=== PATIENT | male | born 1955 | race Hispanic/Latino ===

== ENCOUNTER 2018-08-07 14:23 | Emergency (ER) | payer OTHER, SELFPAY ==
[2018-08-07 15:12] LABS: Absolute Lymphocytes (CBC) 1.3 K/uL (0.7-4.9); Basophils % 0.5 % (0-1.3); Eosinophils % 0.4 % (0-4.4); Hematocrit 40.8 % (39.6-49.0); Lymphocytes % 6.9 % (15.3-44.8); MPV 9.7 fL (7.6-11.3); Monocytes % 6.9 % (3.3-12.3); RBC Red Blood Cell Count 5.07 M/uL (4.33-5.43)
[2018-08-07 15:30] LABS: Albumin 3.3 g/dL (3.4-5.0); Bilirubin Direct 0.1 mg/dL (0-0.2); Bilirubin Total 0.5 mg/dL (0.2-1.0); Protein, Total 7.8 g/dL (6.4-8.2)
[2018-08-07 15:34] LABS: Potassium 2.9 mmol/L (3.5-5.1)
[2018-08-07] MEDS ORDERED: FENTANYL CITR 100 MCG/2 ML ONE (15:52)
[2018-08-07] MEDS ORDERED: ONDANSETRON 4 MG/2 ML VIAL ONE (15:52)
--- NOTE | 2018-08-07 16:12 | RAD REPORT ---
EXAM DESCRIPTION: CT - Abdomen Pelvis W Contrast - 08/07/2018 3:49 pm CLINICAL HISTORY: Abdominal pain . COMPARISON: none. TECHNIQUE: Computed axial tomography of the abdomen pelvis was obtained. 100 cc Isovue-300 was admin istered intravenously. Oral contrast was not requested which limits evaluation of bowel. All CT scans are performed using dose optimization technique as appropriate and may include automated exposure control or mA/KV adjustment according to patient size. FINDINGS: Some images are degraded by motion artifact Small low-density areas are present within the periphery of each kidney. The liver, spleen, pancreas, and adrenals appear unremarkable. There is no evidence of diverticulitis. A small amount of ascites The wall of the rectum is thickened. Fluid is present throughout colon. The right colon measures 10 c entimeters. Bilateral inguinal lymph nodes measure up to 2 centimeters. Periaortic lymph node measures 1 centimet er IMPRESSION: Small low-density areas within the periphery of the each kidney. It is uncertain if this is secondary to artifact or pathology such as inflammation/infection. Rectal wall thickening could either be secondary to inflammation or neoplasm. Small perirectal lymph nodes are noted. . Distention of the right colon measuring 10 centimeters Large right hydrocele Lymphadenopathy
[2018-08-07] MEDS ORDERED: NS KCL 20MEQ 1,000 ML IV ONE (16:13)
[2018-08-07 16:34] LABS: Blood Morphology Comment NOT SEEN (NOT SEEN); Platelet Estimate INCR
[2018-08-07] MEDS ORDERED: PIPER/TAZO/NS 3.375gm 3.375 GM/100 ML BAG ONE (16:45)
--- NOTE | 2018-08-07 18:36 | ER ---
Nurse's Notes [facility] Name: Donta Siegel Age: 62 yrs Sex: Male : 1955 Arrival Date: 08/07/2018 Time: 14:25 Bed 26 Private MD: Diagnosis: Large Bowel Obstruction;Proctitis;Other specified diseases of anus and rectum-Rectal Mass Presentation: 08/07 14:31 Presenting complaint: Patient states: Reports bloating and abdominal pain with rectal aj pain from hemorrhoids as well. Care prior to arrival: None. 14:31 Acuity: FANTA 3 aj 15:04 Transition of care: patient was not received from another setting of care. Onset of ca1 symptoms was August 07, 2018. Risk Assessment: Do you want to hurt yourself or someone else? Patient reports no desire to harm self or others. Initial Sepsis Screen: Does the patient meet any 2 criteria? No. Patient's initial sepsis screen is negative. Does the patient have a suspected source of infection? No. Patient's initial sepsis screen is negative. 15:04 Method Of Arrival: Wheelchair ca1 Triage Assessment: 14:31 General: Appears in no apparent distress. uncomfortable, Behavior is calm, cooperative, aj appropriate for age. Pain: Complains of pain in abdomen and anus. Neuro: Level of Consciousness is awake, alert, obeys commands, Oriented to person, place, time, situation, Appropriate for age. Respiratory: Airway is patent Respiratory effort is even, unlabored. GI: Abdomen is round distended. Derm: Skin is intact, is healthy with good turgor, Skin is pink, warm \T\ dry. normal. Historical: - Allergies: 14:31 No Known Allergies; aj - Home Meds: 15:03 None [Active]; ca1 - PMHx: 15:03 None; ca1 - PSHx: 15:03 Hernia repair; ca1 - Immunization history:: Adult Immunizations up to date. - Social history:: Smoking status: Patient uses tobacco products, smokes one-half pack cigarettes per day. - Ebola Screening: : Patient negative for fever greater than or equal to 101.5 degrees Fahrenheit, and additional compatible Ebola Virus Disease symptoms Patient denies exposure to infectious person Patient denies travel to an Ebola-affected area in the 21 days before illness onset. Screenin:03 Abuse screen: Denies threats or abuse. Denies injuries from another. Nutritional ca1 screening: No deficits noted. Tuberculosis screening: No symptoms or risk factors identified. Fall Risk IV access (20 points). Assessment: 14:58 General: Appears in no apparent distress. uncomfortable, Behavior is calm, cooperative, ca1 appropriate for age. Pain: Complains of pain in pelvis and abdomen and anus and groin Pain does not radiate. Pain currently is 9 out of 10 on a pain scale. Pain began 2-3 days ago. Neuro: Level of Consciousness is awake, alert, obeys commands, Oriented to person, place, time, situation. Cardiovascular: Heart tones S1 S2 present Capillary refill < 3 seconds Patient's skin is warm and dry. Respiratory: Airway is patent Respiratory effort is even, unlabored, Respiratory pattern is regular, symmetrical, Breath sounds are clear bilaterally. GI: Abdomen is round distended, Bowel sounds present X 4 quads. Abdomen is tender to palpation X 4 quads. Abd is rigid X 4 quads. GI: Reports constipation, hemorrhoids, of persistent hiccups. : No deficits noted. No signs and/or symptoms were reported regarding the genitourinary system. EENT: No deficits noted. No signs and/or symptoms were reported regarding the EENT system. Derm: Skin is intact, is healthy with good turgor, Skin is pink, warm \T\ dry. Musculoskeletal: Circulation, motion, and sensation intact. Capillary refill < 3 seconds, Range of motion: intact in all extremities. 15:50 Reassessment: Patient appears in no apparent distress at this time. Patient and/or ca1 family updated on plan of care and expected duration. Pain level reassessed. Patient is alert, oriented x 3, equal unlabored respirations, skin warm/dry/pink. 16:45 Reassessment: Patient appears in no apparent distress at this time. Patient and/or ca1 family updated on plan of care and expected duration. Pain level reassessed. Patient is alert, oriented x 3, equal unlabored respirations, skin warm/dry/pink. 17:18 Reassessment: Patient appears in no apparent distress at this time. Patient is alert, ca1 oriented x 3, equal unlabored respirations, skin warm/dry/pink. Pt had BM, loose. Changed briefs, saba and blanket. 18:15 Reassessment: Patient appears in no apparent distress at this time. Patient and/or ca1 family updated on plan of care and expected duration. Pain level reassessed. Patient is alert, oriented x 3, equal unlabored respirations, skin warm/dry/pink. General Surgeon at bedside. 19:04 Reassessment: Patient appears in no apparent distress at this time. Patient and/or ca1 family updated on plan of care and expected duration. Pain level reassessed. Patient is alert, oriented x 3, equal unlabored respirations, skin warm/dry/pink. 19:37 Reassessment: Patient appears in no apparent distress at this time. Patient is alert, ca1 oriented x 3, equal unlabored respirations, skin warm/dry/pink. Called Report to Lety Morales RN. 20:12 Reassessment: Patient appears in no apparent distress at this time. Patient is alert, ca1 oriented x 3, equal unlabored respirations, skin warm/dry/pink. Vital Signs: 14:31 BP 144 / 97; Pulse 112; Resp 16; Temp 99.4; Pulse Ox 97% on R/A; Weight 99.79 kg; aj Height 5 ft. 8 in. (172.72 cm); 15:50 BP 100 / 65; Pulse 105; Resp 18 S; Temp 99(O); Pulse Ox 96% on R/A; ca1 16:47 BP 111 / 76; Pulse 102; Resp 17 S; Pulse Ox 96% on R/A; ca1 17:18 BP 113 / 64; Pulse 94; Resp 17 S; Pulse Ox 100% on R/A; ca1 18:30 BP 107 / 90; Pulse 92; Resp 16; Pulse Ox 95% on R/A; ca1 19:39 BP 132 / 63; Pulse 95; Resp 16; Temp 98.6(O); Pulse Ox 100% on R/A; ca1 14:31 Body Mass Index 33.45 (99.79 kg, 172.72 cm) aj ED Course: 14:25 Patient arrived in ED. as 14:31 Triage completed. aj 14:31 Arm band placed on right wrist. Patient placed in an exam room. aj 14:35 Anusha Barth, RAJ is Primary Nurse. ca1 14:38 Charles Franco PA is PHCP. jr8 14:38 Darrion Drake MD is Attending Physician. jr8 14:53 Inserted saline lock: 20 gauge in right antecubital area, using aseptic technique. mg2 Blood collected. 15:03 Patient has correct armband on for positive identification. Placed in gown. Bed in low ca1 position. Call light in reach. Side rails up X 1. Pulse ox on. NIBP on. Warm blanket given. 15:03 No provider procedures requiring assistance completed. ca1 15:[address] via stretcher. ca1 15:50 CT Abd/Pelvis - IV Contrast Only In Process Unspecified. EDMS 15:57 CT completed. Patient tolerated procedure well. Patient moved back from CT. em2 16:36 Inserted saline lock: 20 gauge in left hand, using aseptic technique. ca1 20:11 Patient transferred, IV remains in place. ca1 20:12 Report given to LUIS FRANCISCO. ca1 Administered Medications: 15:35 Not Given (Physician Discretion): NS 0.9% 1000 ml IV at 1000 ml once jr8 15:42 Drug: Zofran 4 mg Route: IVP; Site: right antecubital; mg2 16:39 Follow up: Response: No adverse reaction; Nausea is decreased ca1 15:51 Drug: fentaNYL (PF) 50 mcg Route: IVP; Site: right antecubital; mg2 16:39 Follow up: Response: No adverse reaction; Pain is decreased ca1 16:05 Drug: NS 0.9% with KCl 20 mEq/L 1000 ml Route: IV; Rate: 500 ml/hr; Site: right ca1 antecubital; 18:30 Follow up: Response: No adverse reaction; IV Status: Completed infusion ca1 16:38 Drug: Zosyn 3.375 grams Route: IVPB; Infused Over: 60 mins; Site: left hand; ca1 17:40 Follow up: Response: No adverse reaction; IV Status: Completed infusion ca1 19:27 Drug: Reglan 10 mg Route: IVP; Site: left hand; ca1 19:40 Follow up: Response: No adverse reaction; Nausea is decreased ca1 Outcome: 18:26 ER care complete, transfer ordered by . jr8 20:11 Transferred by ground EMS to [facility], Transfer form completed. ca1 X-rays sent w/ patient. 20:11 Condition: stable 20:11 Instructed on the need for transfer, Demonstrated understanding of instructions. 20:13 Patient left the ED. ca1 Signatures: Dispatcher [employer] Celia Dennis RN RN Cheyenne Cabrera Josh, PA PA jr8 Montes, Enrique em2 Gardose, Michele, RN RN mg2 Anusha Barth RN RN ca1 Corrections: (The following items were deleted from the chart) 15:06 14:58 GI: Reports constipation, hemorrhoids, ca1 ca1
--- NOTE | 2018-08-07 18:36 | EDPHYS ---
Physician Documentation [facility] Name: Donta Siegel Age: 62 yrs Sex: Male : 1955 Arrival Date: 08/07/2018 Time: 14:25 Bed 26 Private MD: ED Physician Darrion Drake HPI: 08/07 16:37 This 62 yrs old Male presents to ER via Wheelchair with complaints of jr8 Hemorrhoids, Abdominal Pain. 16:37 Onset: The symptoms/episode began/occurred gradually, 3 month(s) ago, and became worse jr8 2 day(s) ago, and became persistent 2 days ago. Associated signs and symptoms: Pertinent positives: diarrhea, vomiting. Modifying factors: The patient symptoms are alleviated by nothing, the patient symptoms are aggravated by nothing. The patient has not experienced similar symptoms in the past. The patient has not recently seen a physician. Patient stated that for the past three months he feels that he has been having bad hemorrhoids. Has seen PCP who gave him cream but without relief. Now for the past two days has had abdominal distension, nausea, vomiting, diarrhea, and bowel incontinence . Historical: - Allergies: 14:31 No Known Allergies; aj - Home Meds: 15:03 None [Active]; ca1 - PMHx: 15:03 None; ca1 - PSHx: 15:03 Hernia repair; ca1 - Immunization history:: Adult Immunizations up to date. - Social history:: Smoking status: Patient uses tobacco products, smokes one-half pack cigarettes per day. - Ebola Screening: : Patient negative for fever greater than or equal to 101.5 degrees Fahrenheit, and additional compatible Ebola Virus Disease symptoms Patient denies exposure to infectious person Patient denies travel to an Ebola-affected area in the 21 days before illness onset. ROS: 16:37 Eyes: Negative for injury, pain, redness, and discharge, ENT: Negative for injury, jr8 pain, and discharge, Neck: Negative for injury, pain, and swelling, Cardiovascular: Negative for chest pain, palpitations, and edema, Respiratory: Negative for shortness of breath, cough, wheezing, and pleuritic chest pain, Back: Negative for injury and pain, MS/Extremity: Negative for injury and deformity, Skin: Negative for injury, rash, and discoloration, Neuro: Negative for headache, weakness, numbness, tingling, and seizure. 16:37 Abdomen/GI: Positive for abdominal pain, nausea, vomiting, and diarrhea, rectal pain, bowel incontinence. Exam: 16:37 Eyes: Pupils equal round and reactive to light, extra-ocular motions intact. Lids and jr8 lashes normal. Conjunctiva and sclera are non-icteric and not injected. Cornea within normal limits. Periorbital areas with no swelling, redness, or edema. ENT: Nares patent. No nasal discharge, no septal abnormalities noted. Tympanic membranes are normal and external auditory canals are clear. Oropharynx with no redness, swelling, or masses, exudates, or evidence of obstruction, uvula midline. Mucous membranes moist. Neck: Trachea midline, no thyromegaly or masses palpated, and no cervical lymphadenopathy. Supple, full range of motion without nuchal rigidity, or vertebral point tenderness. No Meningismus. Cardiovascular: Regular rate and rhythm with a normal S1 and S2. No gallops, murmurs, or rubs. Normal PMI, no JVD. No pulse deficits. Respiratory: Lungs have equal breath sounds bilaterally, clear to auscultation and percussion. No rales, rhonchi or wheezes noted. No increased work of breathing, no retractions or nasal flaring. Back: No spinal tenderness. No costovertebral tenderness. Full range of motion. Skin: Warm, dry with normal turgor. Normal color with no rashes, no lesions, and no evidence of cellulitis. MS/ Extremity: Pulses equal, no cyanosis. Neurovascular intact. Full, normal range of motion. Neuro: Awake and alert, GCS 15, oriented to person, place, time, and situation. Cranial nerves II-XII grossly intact. Motor strength 5/5 in all extremities. Sensory grossly intact. Cerebellar exam normal. Normal gait. 16:37 Abdomen/GI: Inspection: distension, that is moderate, Bowel sounds: active, Palpation: soft, mild abdominal tenderness, in the right lower quadrant and left lower quadrant, mass, is not appreciated, rebound tenderness, is not appreciated, voluntary guarding, is not appreciated, involuntary guarding, is not appreciated, no appreciated organomegaly, Rectal exam: mass, that is moderate-sized, with tenderness, anal mass palpated circumferentially with moderate tenderness . Vital Signs: 14:31 BP 144 / 97; Pulse 112; Resp 16; Temp 99.4; Pulse Ox 97% on R/A; Weight 99.79 kg; aj Height 5 ft. 8 in. (172.72 cm); 15:50 BP 100 / 65; Pulse 105; Resp 18 S; Temp 99(O); Pulse Ox 96% on R/A; ca1 16:47 BP 111 / 76; Pulse 102; Resp 17 S; Pulse Ox 96% on R/A; ca1 17:18 BP 113 / 64; Pulse 94; Resp 17 S; Pulse Ox 100% on R/A; ca1 18:30 BP 107 / 90; Pulse 92; Resp 16; Pulse Ox 95% on R/A; ca1 19:39 BP 132 / 63; Pulse 95; Resp 16; Temp 98.6(O); Pulse Ox 100% on R/A; ca1 14:31 Body Mass Index 33.45 (99.79 kg, 172.72 cm) aj MDM: 14:44 Patient medically screened. jr8 18:21 Data reviewed: vital signs, nurses notes, lab test result(s), radiologic studies, CT jr8 scan. Data interpreted: Pulse oximetry: on room air is 100 %. Interpretation: normal. Counseling: I had a detailed discussion with the patient and/or guardian regarding: the historical points, exam findings, and any diagnostic results supporting the discharge/admit diagnosis, lab results, radiology results, the need to transfer to another facility, [facility] does not immediately have the required specialist. ED course: Called Dr. King to evaluate patient for possible transfer due to what appears to be significant anal mass. Dr. King agrees and recommends transfer at this time after seeing and evaluating patient in ED . 08/07 14:44 Order name: Basic Metabolic Panel; Complete Time: 15:35 [facility] 08/07 14:44 Order name: CBC with Diff; Complete Time: 16:37 [facility] 08/07 14:44 Order name: Creatinine for Radiology; Complete Time: 15:33 08/07 14:44 Order name: Hepatic Function; Complete Time: 15:35 [facility] 08/07 14:44 Order name: Lipase; Complete Time: 15:35 [facility] 08/07 16:35 Order name: Manual Differential; Complete Time: 16:37 [facility] 08/07 14:44 Order name: IV Saline Lock; Complete Time: 14:56 8 08/07 15:33 Order name: CT Abd/Pelvis - IV Contrast Only; Complete Time: 16:18 [facility] 08/07 14:44 Order name: Labs collected and sent; Complete Time: 14:56 Administered Medications: 15:35 Not Given (Physician Discretion): NS 0.9% 1000 ml IV at 1000 ml once jr8 15:42 Drug: Zofran 4 mg Route: IVP; Site: right antecubital; mg2 16:39 Follow up: Response: No adverse reaction; Nausea is decreased ca1 15:51 Drug: fentaNYL (PF) 50 mcg Route: IVP; Site: right antecubital; mg2 16:39 Follow up: Response: No adverse reaction; Pain is decreased ca1 16:05 Drug: NS 0.9% with KCl 20 mEq/L 1000 ml Route: IV; Rate: 500 ml/hr; Site: right ca1 antecubital; 18:30 Follow up: Response: No adverse reaction; IV Status: Completed infusion ca1 16:38 Drug: Zosyn 3.375 grams Route: IVPB; Infused Over: 60 mins; Site: left hand; ca1 17:40 Follow up: Response: No adverse reaction; IV Status: Completed infusion ca1 19:27 Drug: Reglan 10 mg Route: IVP; Site: left hand; ca1 19:40 Follow up: Response: No adverse reaction; Nausea is decreased ca1 Disposition: 08/08 10:25 Co-signature as Attending Physician, Darrion Drake MD I agree with the assessment and kdr plan of care. Disposition: 08/07/18 18:26 Transfer ordered to [facility]. Diagnosis are Large Bowel Obstruction, Proctitis, Other specified diseases of anus and rectum - Rectal Mass. - Reason for transfer: Higher level of care. - Accepting physician is Dr. Gaytan. - Condition is Stable. - Problem is new. - Symptoms have improved. Signatures: Dispatcher [employer] EDCelia Harry RN RN aj Rittger, Kevin, MD MD kdr Roszak, Josh, PA PA jr8 Luis Enrique Stuart RN RN mg2 Anusha Barth RN RN ca1 Corrections: (The following items were deleted from the chart) 08/07 19:09 18:26 08/07/2018 18:26 Transfer ordered to [facility]. Diagnosis is jr8 Large Bowel Obstruction; Proctitis; Other specified diseases of anus and rectum - Rectal Mass. Reason for transfer: Higher level of care. Accepting physician is [facility]. Condition is Stable. Problem is new. Symptoms have improved. jr8 20:13 19:09 08/07/2018 18:26 Transfer ordered to [facility]. Diagnosis is ca1 Large Bowel Obstruction; Proctitis; Other specified diseases of anus and rectum - Rectal Mass. Reason for transfer: Higher level of care. Accepting physician is Dr. Gaytan. Condition is Stable. Problem is new. Symptoms have improved. jr8
[2018-08-07] MEDS ORDERED: METOCLOPRAMIDE 10 MG/2mL INJ ONE (19:31)
[2018-08-07] MEDS ORDERED: NA CHLORIDE 0.9% 100 ML IV ONE (19:32)
--- NOTE | 2018-08-08 14:31 | CON ---
Date of Consultation: 08/07/2018 Brief History Of Present Illness: Patient is a 62-year-old male, who comes to the hospital with complaints of abdominal pain, beginning gradually approximately 3 months ago associated with harris pain. He had been seen by several physicians at [facility] system including Aurea and Don. The y stated he had large hemorrhoids which needed to be treated. He has never had a colonoscopy. He di d state that these symptoms got progressively worse over the past 2 days, significantly worsening ove r the past 2 days associated with nausea, bloating, abdominal pain, distention, and increased rectal pain and as such he came to the emergency room with the above-stated complaints. Past Medical History: Negative. Past Surgical History: Hernia repair only in the inguinal region. Allergies: NO KNOWN DRUG ALLERGIES. Home Medications: None. Social History: He uses approximately half a pack per day of cigarettes. Denies alcohol or recreati onal drug use. He has by report tried creams for his perceived hemorrhoids. Physical Examination: Vital Signs: At the time of my examination, his blood pressure was 144/97, pulse is 112, respiratory rate is 16, temperature 99.4. General: He is awake, alert and oriented. Psychiatric: Appropriate. Conversive. He is in no acute distress. He is in minimal discomfort at this time, but is able to converse normally. HEENT: Otherwise normocephalic. Sclerae icteric. Mucosa is moist. Oropharynx clear. Neck: Supple. No JVD. Chest: Normal expansion and excursion Cardiovascular: Tachycardia otherwise normal. Abdomen: Soft with positive global mild tenderness to palpation. No peritoneal signs. No rebound. No guarding. No focal peritonitis, but he is distended, tympanic on examination, most on the right abdomen. Rectal examination, he has what appears to be firm fungating mass of the anus consistent wi th a possible neoplastic process. I am uncertain of the etiology. However, I do have concerns that this could be a cancer of some type, likely anal in origin, perhaps rectal, but difficult to ascertai n as it is firm, fungating, tender to palpation, friable surfaces. I cannot complete a digital exami [facility] due to pain, but I have great concern that this is a neoplastic process. Extremities: No clubbing, cyanosis, or edema. Skin: Warm and dry. Laboratory Data: Laboratory exam reveals a white blood cell count of 18.8, hemoglobin is 13.0, hemat ocrit 40.8, platelet count was 526. Neutrophils are 85%. His sodium 137, potassium 2.9, chloride 99 , carbon dioxide 25, BUN 20, creatinine is 1.3. His AST 12, ALT 13, alkaline phosphatase is 59, lipa se of 105. He had a CT scan performed of the abdomen and pelvis which was officially read as small l ow-density areas within the periphery of each kidney is uncertain secondary to artefact of pathology such as inflammation or infection. Rectal wall thickening could either be secondary to inflammation or neoplasm. Small perirectal lymph nodes are noted. Distention of the right colon measured 10 cm, right large hydrocele, lymphadenopathy noted. 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 1.IV fluid hydration. 2.Antibiotic coverage. 3.I recommend transferring the patient to a higher level of care as we have no colorectal surgeon wh o performs anal procedures. I recommend that he begin a possible cancer workup to biopsy and possibl y name this process that is occurring in his anorectal region and temporize his abdominal pain and di stention. Additionally, I recommend GI consultation. I have explained risks, benefits, and alternat man of above stated plan to patient, he agrees to proceed as indicated. Thank you for this interesting consult. OVIDIO/FAIZAN Voice ID: [id number] Report ID: [id number]
== END 2018-08-07 20:13 | disposition short-term general hospital (02) ==
LOC: ER 14:23
DX: K56.609 Unspecified intestinal obstruction, unspecified as to partial versus complete obstruction (principal); K62.89 Other specified diseases of anus and rectum; K62.9 Disease of anus and rectum, unspecified; R11.2 Nausea with vomiting, unspecified; F17.210 Nicotine dependence, cigarettes, uncomplicated
CPT/HCPCS: 36415; 74177; 80048; 80076; 83690; 85025; 99285; J2405; J2543; J2765; J3010; Q9967

== ENCOUNTER 2018-11-15 04:29 | Emergency (ER) | payer OTHER, SELFPAY ==
[2018-11-15] MEDS ORDERED: PIPER/TAZO/NS 3.375gm 3.375 GM/100 ML BAG ONE (05:28)
[2018-11-15] MEDS ORDERED: NA CHLORIDE 0.9% 1,000 ML ONE ×2 (05:28)
[2018-11-15 06:09] LABS: Bilirubin Total 0.7 mg/dL (0.2-1.0); Potassium 4.5 mmol/L (3.5-5.1); Protein, Total 7.3 g/dL (6.4-8.2); Troponin (Emerg Dept Use Only) 0.06 ng/mL (0.0-0.045)
[2018-11-15 07:55] LABS: Protime INR 4.44
[2018-11-15 08:05] LABS: Absolute Lymphocytes (CBC) 0.9 K/uL (0.7-4.9); Basophils % 0.2 % (0-1.3); Hematocrit 37.1 % (39.6-49.0); Lymphocytes % 31.5 % (15.3-44.8); MPV 9.6 fL (7.6-11.3); RBC Red Blood Cell Count 4.52 M/uL (4.33-5.43)
[2018-11-15 08:14] LABS: Urine Bacteria 20-50 /HPF (NONE SEEN)
[2018-11-15 08:15] LABS: Urine Amorphous Sediment 1+ /HPF (NONE SEEN); Urine Culture Reflex Order REFLEXED
--- NOTE | 2018-11-15 08:27 | ER ---
Nurse's Notes [facility] Name: Donta Siegel Age: 63 yrs Sex: Male : 1955 Arrival Date: 11/15/2018 Time: 04:42 Bed 6 Private MD: Diagnosis: Dehydration;Acute kidney failure;Elevated white blood cell count;Abdominal tenderness;Ileostomy status;Colostomy status;Sepsis, unspecified organism Presentation: 11/15 04:25 Presenting complaint: EMS states: that they were toned for pt having dehydration. Son julienne had attempted to get pt up into the shower and he collapsed. Pt just started iv chemo last week. Pt is having shortness of breath and nausea. Transition of care: patient was not received from another setting of care. Onset of symptoms was November 15, 2018. Risk Assessment: Do you want to hurt yourself or someone else? Patient reports no desire to harm self or others. Initial Sepsis Screen: Does the patient meet any 2 criteria? RR > 20 per min. HR > 90 bpm. Yes Does the patient have a suspected source of infection? Yes: Acute abdominal pain. Care prior to arrival: Medication(s) given: Normal saline infusion, 250 ml IV initiated. 20 GA, in the left antecubital area, Glucose check: 106. 04:25 Method Of Arrival: EMS: [facility] 04:25 Acuity: FANTA 2 fc Historical: - Allergies: 04:53 No Known Allergies; fc - Home Meds: 04:53 metoprolol tartrate 25 mg Oral tab .5 tab 2 times per day [Active]; capecitabine 500 mg fc oral tab 4 tabs in am , 3 tabs at night for 14 days then 7 days off [Active]; Zofran (as hydrochloride) 8 mg Oral tab 1 tab q8 hrs prn [Active]; - PMHx: 04:53 Hypertension; colon cancer; fc - PSHx: 04:53 Hernia repair; fc - Immunization history:: Last tetanus immunization: unknown, Flu vaccine is not up to date. - Social history:: Smoking status: Patient/guardian denies using tobacco, the patient reports quitting approximately .5 years ago, Patient/guardian denies using alcohol, the patient reports quitting approximately .[address], [address] drugs. - Ebola Screening: : Patient negative for fever greater than or equal to 101.5 degrees Fahrenheit, and additional compatible Ebola Virus Disease symptoms Patient denies exposure to infectious person Patient denies travel to an Ebola-affected area in the 21 days before illness onset. Screenin:25 Nutritional screening: No deficits noted. Tuberculosis screening: No symptoms or risk fc factors identified. Fall Risk None identified. 04:50 Abuse screen: Denies threats or abuse. fc Assessment: 05:46 General: Appears uncomfortable, ill. Neuro: Level of Consciousness is awake, alert, bb obeys commands, Oriented to person, place, time, situation. Cardiovascular: Heart tones S1 S2 present Capillary refill < 3 seconds Pulses are all present. Edema is absent. Rhythm is atrial fibrillation with rapid ventricular response. Respiratory: Airway is patent Respiratory effort is labored, Respiratory pattern is tachypnea Breath sounds are clear bilaterally. GI: Abdomen is non-distended, iliostomy and colostomy bags in place Derm: Skin is dry, Skin is pale, Skin temperature is cool. Musculoskeletal: Circulation, motion, and sensation intact. 06:47 Reassessment: No changes from previously documented assessment. CT called pt ready for bb scan. 06:53 Reassessment: seizure precautions in place pt to CT scan via stretcher with electronic development technician. bb 07:00 Reassessment: RECD REPORT FROM AVA ANTHONY. 63YO HM P/W DEHYDRATION AND MALAISE, CURRENT bp CHEMO PT, ST ON MONITOR. 08:29 Reassessment: [facility]. bp 08:54 Reassessment: EMS AT B/S, PT ISSA. bp Vital Signs: 04:25 BP 111 / 63; Pulse 124; Resp 26; Temp 96.8(TE); Pulse Ox 97% on R/A; Weight 89.36 kg fc (R); Height 5 ft. 8 in. (172.72 cm) (R); Pain 0/10; 05:46 BP 137 / 67; Pulse 103; Resp 28 S; Pulse Ox 100% on R/A; Pain 0/10; bb 06:48 BP 145 / 93; Pulse 101; Resp 26 S; Pulse Ox 100% on R/A; bb 08:46 BP 140 / 112; Pulse 102; Resp 14; Pulse Ox 93% ; bp 04:25 Body Mass Index 29.95 (89.36 kg, 172.72 cm) ED Course: 04:25 Arm band placed on Patient placed in an exam room, on a stretcher. fc 04:25 Patient has correct armband on for positive identification. Bed in low position. Call light in reach. Side rails up X2. quality assurance monitor body on. Pulse ox on. NIBP on. 04:25 Maintain EMS IV. Dressing intact. Good blood return noted. Site clean \T\ dry. Gauge \T\ fc site: 20 gauge to left a/c. 04:42 Patient arrived in ED. fc 04:42 Raymond Perez MD is Attending Physician. ps1 04:49 Triage completed. fc 05:21 Chest Single View XRAY In Process Unspecified. EDMS 05:45 Ava Henderson, RAJ is Primary Nurse. bb 06:30 Notified ED physician of a critical lab result(s). Cloride 78, Bicarb 14, Creatinine bb 6.69, Calcium 14.8, Lactate 14. Dr Perez notified. 07:06 CT Abd/Pelvis - IV Contrast Only In Process Unspecified. EDMS 07:10 CT completed. Patient tolerated procedure well. Patient moved to CT via stretcher. Patient moved back from CT. 07:20 initiated a transfer with Linda Torres RN from the [facility]. eb 07:30 Lab(s) recollected, by me, sent to lab. [facility] 07:40 Attending Physician role handed off by Raymond Perez MD gonzález 07:40 Emilio Oden MD is Attending Physician. gonzález 07:40 Up cath inserted, using sterile technique, 18 Fr., by me, balloon inflated, to bp gravity drainage, urine specimen collected. returned cloudy urine. Patient tolerated well. 07:[address] Ackerman the technology strategist agronomist for [facility] with Dr. Oden for patient transfer consultation. 08:00 administrative approval given by Linda Torres RN/ Patient has been accepted to [facility] 6 [place] A bed 11/ Dr. Lj aBrragan has accepted the patient in transfer/ Report to be called to [phone]. 08:56 No provider procedures requiring assistance completed. Patient transferred, IV remains bp in place. Administered Medications: 05:46 Drug: NS 0.9% (30 ml/kg) 30 ml/kg Route: IV; Rate: bolus; Site: left antecubital; bb 08:54 Follow up: IV Status: Completed infusion; IV Intake: 2600ml bp 05:46 Drug: Zosyn 3.375 grams Route: IVPB; Infused Over: 60 mins; Site: left antecubital; bb 06:46 Follow up: IV Status: Completed infusion; IV Intake: 100ml bb Intake: 06:46 IV: 100ml; Total: 100ml. bb 08:54 IV: 2600ml; Total: 2700ml. bp Outcome: 08:25 ER care complete, transfer ordered by . gonzález 08:55 Transferred by ground EMS to [facility] Transfer form completed. bp 08:55 Condition: stable 08:55 Instructed on the need for transfer. 09:05 Patient left the ED. bp Signatures: Dispatcher [employer] EDMS Emilio Oden MD MD cha Hagler, Ervin eh Chretien, Felicia RN RN Ava Johnson RN RN bb Herrera, Deanna [facility] Talha Buckley RN RN bp Singer, Phillip, MD MD ps1 Botello, Elizabeth eb
--- NOTE | 2018-11-15 08:27 | EDPHYS ---
Physician Documentation [facility] Name: Donta Siegel Age: 63 yrs Sex: Male : 1955 Arrival Date: 11/15/2018 Time: 04:42 Bed 6 Private MD: Emilio Muniz HPI: 11/15 04:45 This 63 yrs old Male presents to ER via Unassigned with complaints of ps1 Shortness Of Breath. 04:45 Patient has a history of colon cancer s/p colectomy with colostomy. Patient BIBEMS for ps1 concerns of dehydration and hypotension and tachycardia. Patient has blood in colostomy. Patient was additionally tachypneic. Normotensive. Patient is alert but appears ill. Patient is on chemo actively. Was on oral and then started through port last week. Over last week has not had appetite and not drinking much. No fever. . Historical: - Allergies: 04:53 No Known Allergies; fc - Home Meds: 04:53 metoprolol tartrate 25 mg Oral tab .5 tab 2 times per day [Active]; capecitabine 500 mg fc oral tab 4 tabs in am , 3 tabs at night for 14 days then 7 days off [Active]; Zofran (as hydrochloride) 8 mg Oral tab 1 tab q8 hrs prn [Active]; - PMHx: 04:53 Hypertension; colon cancer; fc - PSHx: 04:53 Hernia repair; fc - Immunization history:: Last tetanus immunization: unknown, Flu vaccine is not up to date. - Social history:: Smoking status: Patient/guardian denies using tobacco, the patient reports quitting approximately .5 years ago, Patient/guardian denies using alcohol, the patient reports quitting approximately .[address], [address] drugs. - Ebola Screening: : Patient negative for fever greater than or equal to 101.5 degrees Fahrenheit, and additional compatible Ebola Virus Disease symptoms Patient denies exposure to infectious person Patient denies travel to an Ebola-affected area in the 21 days before illness onset. ROS: 04:45 Constitutional: Negative for fever, chills, and weight loss, Eyes: Negative for injury, ps1 pain, redness, and discharge, ENT: Negative for injury, pain, and discharge, Cardiovascular: Negative for chest pain, palpitations, and edema, MS/Extremity: Negative for injury and deformity, Skin: Negative for injury, rash, and discoloration, Neuro: Negative for headache, weakness, numbness, tingling, and seizure. 04:45 Respiratory: Positive for cough, shortness of breath. 04:45 Abdomen/GI: Positive for blood in colostomy. Exam: 04:50 Constitutional: This is a well developed, well nourished patient who is awake, alert, ps1 and in no acute distress. Head/Face: Normocephalic, atraumatic. Eyes: Pupils equal round and reactive to light, extra-ocular motions intact. Lids and lashes normal. Conjunctiva and sclera are non-icteric and not injected. Chest/axilla: Normal chest wall appearance and motion. Nontender with no deformity. No lesions are appreciated. 04:50 Cardiovascular: Rate: tachycardic, Rhythm: irregularly irregular, Pulses: no pulse deficits are appreciated. 04:50 Respiratory: the patient does not display signs of respiratory distress, Respirations: normal, Breath sounds: are clear throughout. 04:50 Abdomen/GI: Inspection: scar(s), are noted in the right upper quadrant and left upper quadrant, colostomy and ileostomy, Bowel sounds: normal, Palpation: abdomen is soft and non-tender, blood in ileostomy. Vital Signs: 04:25 BP 111 / 63; Pulse 124; Resp 26; Temp 96.8(TE); Pulse Ox 97% on R/A; Weight 89.36 kg fc (R); Height 5 ft. 8 in. (172.72 cm) (R); Pain 0/10; 05:46 BP 137 / 67; Pulse 103; Resp 28 S; Pulse Ox 100% on R/A; Pain 0/10; bb 06:48 BP 145 / 93; Pulse 101; Resp 26 S; Pulse Ox 100% on R/A; bb 08:46 BP 140 / 112; Pulse 102; Resp 14; Pulse Ox 93% ; bp 04:25 Body Mass Index 29.95 (89.36 kg, 172.72 cm) fc MDM: 04:51 Patient medically screened. ps1 06:45 Data reviewed: vital signs, nurses notes, lab test result(s). ED course: patient has ps1 significant metabolic abnormalities c/w renal failure and uremia, likely requiring dialysis. Patient additionally had blood from ostomy. ? Intraabdominal infection. Scan with contrast as patient meets criteria for emergent dialysis. Markedly hyponatremia. Seizure precautions. Initiated ABX treatment for empiric coverage. CT pending. Plan for patient to be transferred for higher level of care. . 07:41 Patient medically screened. gonzález 11/15 04:43 Order name: Blood Culture Adult (2) ps1 11/15 04:43 Order name: CBC with Diff ps1 11/15 04:43 Order name: Lactate; Complete Time: 06:21 ps1 11/15 04:43 Order name: Procalcitonin; Complete Time: 06:21 ps1 11/15 04:43 Order name: Protime (+inr) ps1 11/15 04:43 Order name: Troponin (emerg Dept Use Only); Complete Time: 06:21 ps1 11/15 04:43 Order name: Urine Microscopic Only ps1 11/15 04:43 Order name: CMP; Complete Time: 06:21 ps1 11/15 05:37 Order name: Glucometer Result Nova; Complete Time: 07:10 ak1 11/15 07:49 Order name: Urine Dipstick--Ancillary (enter results) eb 11/15 08:07 Order name: Manual Differential EDMS 11/15 08:17 Order name: Urine Culture EDMS 11/15 04:43 Order name: Chest Single View XRAY ps1 11/15 04:43 Order name: Accucheck; Complete Time: 05:36 ps1 11/15 04:43 Order name: Cardiac monitoring; Complete Time: 05:37 ps1 11/15 04:43 Order name: EKG - Nurse/Tech; Complete Time: 05:42 ps1 11/15 04:43 Order name: IV Saline Lock - Large Bore; Complete Time: 05:37 ps1 11/15 04:43 Order name: Labs collected and sent; Complete Time: 05:37 ps1 11/15 04:43 Order name: O2 Per Protocol; Complete Time: 05:37 ps1 11/15 04:43 Order name: O2 Sat Monitoring; Complete Time: 05:37 ps1 11/15 04:43 Order name: Urine Dipstick-Ancillary (obtain specimen); Complete Time: 07:53 ps1 11/15 04:43 Order name: CT Abd/Pelvis - IV Contrast Only ps1 11/15 06:48 Order name: Up; Complete Time: 07:53 bb 11/15 08:16 Order name: EKG Electrocardiogram EDMS EC:15 Rate is 111 beats/min. Rhythm is irregularly irregular. QRS [place] is Normal. QRS ps1 interval is normal. QT interval is normal. No Q waves. T waves are Normal. No ST changes noted. Clinical impression: Atrial Fibrillation. Interpreted by me. Administered Medications: 05:46 Drug: NS 0.9% (30 ml/kg) 30 ml/kg Route: IV; Rate: bolus; Site: left antecubital; bb 08:54 Follow up: IV Status: Completed infusion; IV Intake: 2600ml bp 05:46 Drug: Zosyn 3.375 grams Route: IVPB; Infused Over: 60 mins; Site: left antecubital; bb 06:46 Follow up: IV Status: Completed infusion; IV Intake: 100ml bb Disposition: 11/15/18 08:25 Transfer ordered to [facility]. Diagnosis are Dehydration, Acute kidney failure, Elevated white blood cell count, Abdominal tenderness, Ileostomy status, Colostomy status, Sepsis, unspecified organism. - Reason for transfer: Higher level of care. - Accepting physician is to dr sarah, [facility]. - Condition is Serious. - Problem is new. - Symptoms have improved. Critical care time excluding procedures: 07:01 Critical care time: Bedside Care: 30 minutes, Consultation: 10 minutes. Total time: 40 ps1 minutes Signatures: Dispatcher [employer] EDAL Emilio Oden MD MD cha Chretien, Felicia, RN RN Ava Johnson RN RN Talha Brannon, RAJ RN Raymond Mahoney MD MD ps1 Corrections: (The following items were deleted from the chart) 07:00 04:45 Patient has a history of colon cancer s/p colectomy with colostomy. Patient ps1 BIBEMS for concerns of dehydration and hypotension and tachycardia. Patient has blood in colostomy. Patient was additionally tachypneic. Normotensive. Patient is alert but appears ill. . ps1 07:01 04:50 Cardiovascular: Rate: tachycardic, Rhythm: regular, Pulses: no pulse deficits are ps1 appreciated, ps1 09:05 08:25 11/15/2018 08:25 Transfer ordered to [facility]. Diagnosis is bp Dehydration; Acute kidney failure; Elevated white blood cell count; Abdominal tenderness; Ileostomy status; Colostomy status; Sepsis, unspecified organism. Reason for transfer: Higher level of care. Accepting physician is to dr sarah, [facility]. Condition is Serious. Problem is new. Symptoms have improved. gonzález
[2018-11-15 08:28] LABS: Anisocytosis 2+; Blood Morphology Comment NOTED (NOT SEEN); Elliptocytes 1+; Platelet Estimate DECR; Platelets, Giant FEW; Poikilocytosis 1+; Toxic Granulation 1+
[2018-11-15 10:07] VITALS: BP 140/112; O2SAT 93
[2018-11-15 10:43] LABS: Urine Blood 2+ (NEG); Urine Glucose NEGATIVE (NEG); Urine Protein 2+ (NEG)
--- NOTE | 2018-11-16 04:42 | EKG ---
Test Date: 2018-11-15 Test Time: 05:42:05 Web Project Manager: MARCELO MEASUREMENT RESULTS: Intervals: Rate: 111 IN: QRSD: 84 QT: 330 QTc: 448 [place]: P: IN: QRS: -10 T: 94 INTERPRETIVE STATEMENTS: Atrial fibrillation with rapid ventricular response with premature ventricular or aberrantly conducted complexes Nonspecific ST and T wave abnormality, probably digitalis effect Abnormal ECG No previous ECG available for comparison Electronically Signed On 11-16-18 04:42:21 CDT by Gael Tsai
--- NOTE | 2018-11-16 16:48 | RAD REPORT ---
EXAM DESCRIPTION: Omert Single View11/15/2018 7:06 pm CLINICAL HISTORY: cough COMPARISON: none FINDINGS: The lungs appear clear of acute infiltrate. The heart is normal size The right hemidiaphragm is elevated. A central venous catheter has its tip in the superior vena cava
--- NOTE | 2018-11-17 17:19 | RAD REPORT ---
EXAM DESCRIPTION: CT - Abdomen Pelvis W Contrast - 11/15/2018 7:06 pm CLINICAL HISTORY: ABD PAIN COMPARISON: August 07 TECHNIQUE: Biphasic, helical CT imaging of the abdomen and pelvis was performed following 100 ml non -ionic IV contrast. No oral contrast administered. All CT scans are performed using dose optimization technique as appropriate and may include automated exposure control or mA/KV adjustment according to patient size. FINDINGS: No suspicious findings in the lung bases. The liver, spleen, and pancreas show no suspicious findings. Gallbladder is contracted. No biliary tr ee dilatation. Symmetric renal function is seen with no hydronephrosis or suspicious renal mass. No pyelonephritis o r acute parenchymal process. No adrenal abnormalities. Urinary bladder is contracted. Circumferential bladder wall thickening is present. This is more than typically seen even in a contracted state. No bladder calculus or asymmetric mass. Retained fluid is present in the stomach. Stomach is distended. Fluid in the distal esophagus is prob ably reflux. No gastric outlet obstruction suspected. No proximal small bowel acute finding. The patient has a circumferential lumen including mass in the rectum. There is soft tissue stranding in the presacral and perirectal fatty tissues. Small perirectal lymph nodes are present. The sigmoid colon has been transected with a double-barrel colostomy created in the left mid abdomen. Patient may also be status post right hemicolectomy. Patient has a right mid abdomen ileostomy. The ileum shows prominent circumferential wall thickening and edema. There are distended to mildly dilated fluid-fill ed loops of distal jejunum. No free air or pneumatosis. No abscess. No extravasation of bowel content. Patient has abnormal exte rnal iliac chain lymph nodes. Multiple abnormal inguinal lymph nodes are present. Patient has small b ut nonspecific periaortic lymph nodes. Numerous lytic lesions are scattered throughout the skeleton. Due to a prolonged technical malfunction of the PACs manufacturing development engineer systems, the final written report was delayed. Verbal report provided at the time of the study. IMPRESSION: Patient has pronounced small-bowel ileitis pattern involving the distal jejunum in the i leum. Patient has a right mid abdomen ileostomy. No obstructing mass or peristomal hernia. Patient has a lumen occluding mass of the rectum with perirectal and presacral soft tissue stranding and small perirectal lymph nodes. Patient also appears to be status post right hemicolectomy. A doubl e-barrel colostomy is present in the left mid abdomen. Multiple bony metastatic lesions. Numerous inguinal, perirectal and iliac chain abnormal lymph nodes. Circumferential wall thickening of the urinary bladder.
== END 2018-11-15 09:05 | disposition short-term general hospital (02) ==
LOC: ER 04:29
DX: A41.9 Sepsis, unspecified organism (principal); E86.0 Dehydration; N17.9 Acute kidney failure, unspecified; D72.829 Elevated white blood cell count, unspecified; R10.819 Abdominal tenderness, unspecified site; I10 Essential (primary) hypertension; Z85.038 Personal history of other malignant neoplasm of large intestine; Z93.3 Colostomy status; Z93.2 Ileostomy status
CPT/HCPCS: 96361; 96365; 93005; 87040 ×2; 85025; 87086; 36415; 85610; 82962; 83605; 84484; 80053; 84145; 74177; 71045; 51702; 99285; Q9967; J2543; J7030 ×2; 81003; 81015; 87088; 96366; 96368